=== PATIENT | male | born 1950 | race Caucasian/White ===

== ENCOUNTER 2021-03-24 01:11 | Inpatient (IN) ==
[2021-03-24] MEDS ORDERED: DOXYCYCLINE 100 MG in DEXTROSE 5% IN WATER 100 ML IV ONE (01:41)
[2021-03-24] MEDS ORDERED: VANCOMYCIN 1,500 MG in 0.9 % SODIUM CHLORIDE 500 ML IV ONE (01:41)
[2021-03-24] MEDS ORDERED: cefTRIAXone 1 GM VIAL IV ONE (01:48)
--- NOTE | 2021-03-24 01:56 | Emergency Department Note ---
HPI General Chief complaint: Skin/Abscess/Rash Stated complaint: facial redness/swelling Time Seen by Provider: 03/24/21 01:18 Source: patient Mode of arrival: EMS Limitations: no limitations History of Present Illness HPI Narrative: Narrative: 70 yo M w/ h/o DM2 p/w R face and eye edema and pain. He reports a few weeks of Sx, which have been constant and progressive since onset w/ no inciting/aggravating/alleviating factors. He denies any recent injury or other skin breaks. He notes that the pain is 8-9/10, sharp, over the R face w/o radiation. He has had some blurry vision but this has been present since December at least and has not progressed. He was seen yesterday by the same EMS crew and they report that his facial edema is worse today than then. Pt is not an ideal historian and struggles to provide many details. Related Data Home Medications Medication Instructions Recorded Confirmed aspirin 81 mg PO QDAY 03/24/21 03/24/21 lisinopril 5 mg PO QDAY 03/24/21 03/24/21 metformin 500 mg PO BID 03/24/21 03/24/21 Allergies Allergy/AdvReac Type Severity Reaction Status Date / Time Penicillins Allergy Unknown Unknown Verified 03/24/21 10:32 iodine AdvReac Mild Sedation Verified 03/24/21 10:32 Review of Systems ROS ROS Narrative: Narrative: All systems ED: reviewed and negative except as stated. [facility] Narrative Patient History Narrative: Narrative: Medical/Surgical/Family History All Active Problems (Updated 03/24/21 @ 05:59 by Severo Anna MD) Right facial swelling (Acute) Impetigo (Acute) Acute facial pain (Acute) DM2 (diabetes mellitus, type 2) (Acute) Social History Smoking Status: Never smoker Exam Narrative Narrative: Narrative: General Limitations: no limitations General appearance: Present alert and in no apparent distress Head Head: Present normocephalic and other (R half of the face w/ tender, warm, erythema that is blanching w/ numerous excoriations and honey colored crust. See illustration for borders.) Expanded Head Head image: 1. area of erythema 2. area of erythema Eye Eye: Present periorbital swelling (R eye, unable to open on initial exam. Thin purulent drainage leaking from medial edge. Eyelids with thick yellow crust.) ENT ENT: Present normal oropharynx and mucous membranes moist Chest Chest: Present normal inspection and symmetric chest wall rise Respiratory Respiratory: Present normal lung sounds bilaterally; Absent respiratory distress, rales/crackles, wheezes and stridor Cardiovascular Cardiovascular: Present regular rate, normal rhythm, +S1, +S2 and other (2+ B/L radial and DP pulses); Absent systolic murmur and diastolic murmur Adbominal Abdominal: Present soft and normal bowel sounds; Absent distention and tenderness Extremities Extremities: Absent pedal edema Neurological Neurological: Present alert and oriented X3 Psychiatric Psychiatric: Present normal affect Skin Skin: Present warm (WNL) and dry Course Vital Signs Vital signs: Vital Signs Temperature 99.9 F H 03/24/21 01:14 Pulse Rate 96 H 03/24/21 01:14 Respiratory Rate 16 03/24/21 01:14 Blood Pressure 147/89 03/24/21 01:14 Pulse Oximetry (%) 91 03/24/21 01:14 Temperature 99.5 F H 03/25/21 00:00 Pulse Rate 78 03/25/21 00:00 Respiratory Rate 20 03/25/21 00:00 Blood Pressure 152/80 03/25/21 00:00 Pulse Oximetry (%) 93 03/25/21 00:00 [facility] MDM Narrative Medical decision making narrative: Narrative: 70 yo M w/ h/o DM2 p/w facial and R eye pain and swelling. DDx - sepsis, cellulitis, periorbital cellulitis, conjunctivitis, impetigo Pt presented clinically stable, in NAD, but w/ significant facial edema. There was no muffled voice, stridor, SOB, or other evidence of airway involvement. While he met SIRS criteria, clinically he was not septic. I considered periorbital cellulitis but clinically this was less likely given the large area of erythema. The eye seemed to be only incidentally involved. To be safe, I did check a CT, which showed nothing other than nonspecific soft tissue inflammation. The CT however was limited by lack of contrast 2/2 an allergy. I considered a primary ophthalmological issue, however this would not result in erythema spreading over such a large area (bottom of cheek up to crown of head and a little on to the occiput). I ordered vanc and rocephin for broad spectrum coverage, and began W/U w/ labs and CT (as noted above). Labs showed a normal WBC, and a lactate of 2.4. Overall however, I did not feel that sepsis was likely and sepsis fluids were not indicated. Given the amount of edema, in fact, I felt that they would likely be more harm than good. After CT, the edema (but not erythema) began spreading to involve the L forehead and periorbital area. Again, there was no evidence of airway involvement on my re-evaluation. Once the abx infused, his progression ceased. With the rash distribution and edema crossing midline, I felt that zoster was less likely. My suspicion was for impetigo. However given the extent of edema and progression here in the ED, I felt that admission was required to ensure that the abx were effective. I d/w the hospitalist, who requested that I speak w/ ENT before he would admit. At 0542 I spoke w/ JAROCHO Niño in [place]. He also felt that this was likely to be impetigo, albeit an atypical case. He agreed w/ the abx regimen that had been given, and recommended that we give a dose of solumedrol and then cover the pt w/ SSI. He felt that admission here would be perfectly reasonable, but also stated that if there was any decompensation that he would be happy to accept pt for T/F. I then updated the hospitalist, who accepted pt for admission. Lab Data Lab results reviewed: Yes I reviewed the patient's lab results. Result diagrams: 03/24/21 01:41 03/24/21 01:41 Labs: Lab Results 03/24/21 03/24/21 03/24/21 Range/Units 01:41 01:41 02:06 WBC 5.3 (4.5-11.0) K/mcL RBC 5.54 (4.63-6.08) M/mcL Hgb 15.1 (13.7-17.5) g/dL Hct 47.0 (40.1-51.0) % MCV 84.8 (80.0-100.0) fL MCH 27.3 (26.0-34.0) pg MCHC 32.1 (31.0-36.0) g/dL RDW 13.8 (11.5-14.5) % Plt Count 118 L (140-440) K/mcL MPV 10.5 H (7.4-10.4) fL Neut % (Auto) 61.8 (38.0-78.0) % Lymph % (Auto) 18.0 (15.5-49.0) % [place] % (Auto) 19.4 H (1.0-12.0) % Eos % (Auto) 0.6 (0.0-7.0) % Baso % (Auto) 0.2 (0.0-2.0) % Lymph # (Auto) 0.95 L (1.50-4.80) K/mcL [place] # (Auto) 1.02 H (0.10-0.90) K/mcL Eos # (Auto) 0.03 (0.00-0.70) K/mcL Baso # (Auto) 0.01 (0.00-0.30) K/mcL Absolute Neutrophils 3.26 (1.80-8.00) K/mcL VBG Lactic Acid 2.4 H (0.5-2.0) mmol/L Sodium 136 (133-145) mmol/L Potassium 3.9 (3.3-5.1) mmol/L Chloride 99 (96-108) mmol/L Carbon Dioxide 22 (22-30) mmol/L Anion Gap 15.0 (8.0-16.0) BUN 22 (8-23) mg/dL Creatinine 1.1 (0.7-1.2) mg/dL GFR Calculation 66 Glucose 141 H (70-105) mg/dL Calcium 9.2 (8.6-10.4) mg/dL Total Bilirubin 1.1 H (0.1-1.0) mg/dL AST 27 (<40) U/L ALT 25 (<40) U/L Alkaline Phosphatase 68 (39-117) U/L Total Protein 7.5 (5.9-8.4) gm/dL Albumin 3.9 (3.2-5.2) gm/dL Globulin 3.6 (2.2-3.7) gm/dL Albumin/Globulin Ratio 1.1 (1.0-2.3) ED POC Tests ED POC Tests: AAYUSH - SARS Antigen Negative CC TIME Critical Care Time Total Critical Care Time: 45 Attestation: The very real possibility of disability or existed without emergent intervention. Organ systems at risk of deterioration included CVS, pulmonary. Interventions included antibiotics, interpretation of labs and imaging, ENT consultation, and multiple re-evaluations. No procedures were required. Discharge Plan Patient/Caregiver Discharge Instructions Pt seen by BEAUTY CULTURE TEACHER/PA only: No Clinical Impression: Right facial swelling, Impetigo, Acute facial pain, DM2 (diabetes mellitus, type 2) Patient Disposition: Xfer As Inpt ([facility]) Condition: Fair Discharge Date/Time: 03/24/21 07:45
[2021-03-24] MEDS ORDERED: 0.9 % SODIUM CHLORIDE 500 ML ONE (01:57)
[2021-03-24 03:27] LABS: Basophils # (Auto) 0.01 K/mcL (0.00-0.30); Basophils % (Auto) 0.2 % (0.0-2.0); Eosinophils # (Auto) 0.03 K/mcL (0.00-0.70); Eosinophils % (Auto) 0.6 % (0.0-7.0); Hemoglobin 15.1 g/dL (13.7-17.5); Lymphocytes # (Auto) 0.95 K/mcL (1.50-4.80); Mean Cell Volume 84.8 fL (80.0-100.0); Mean Corpuscular HGB Conc 32.1 g/dL (31.0-36.0); Mean Platelet Volume 10.5 fL (7.4-10.4); Monocytes # (Auto) 1.02 K/mcL (0.10-0.90); Monocytes % (Auto) 19.4 % (1.0-12.0); Neutrophils % (Auto) 61.8 % (38.0-78.0); Platelet Count 118 K/mcL (140-440); RBC 5.54 M/mcL (4.63-6.08); Red Cell Distribution Width 13.8 % (11.5-14.5)
[2021-03-24 03:28] LABS: ALT/SGPT 25 U/L (<40); AST/SGOT 27 U/L (<40); Albumin 3.9 gm/dL (3.2-5.2); Albumin/Globulin Ratio 1.1 (1.0-2.3); Alkaline Phosphatase 68 U/L (39-117); Bilirubin,Total 1.1 mg/dL (0.1-1.0); Blood Urea Nitrogen 22 mg/dL (8-23); Calcium 9.2 mg/dL (8.6-10.4); Carbon Dioxide 22 mmol/L (22-30); Chloride 99 mmol/L (96-108); Globulin 3.6 gm/dL (2.2-3.7); Glomerular Filtration Rate 66; Glucose 141 mg/dL (70-105)
[2021-03-24] MEDS ORDERED: ACETAMINOPHEN 1,000 MG/100 ML BAG IV ONE (04:34)
[2021-03-24] MEDS ORDERED: PROPARACAINE 0.5% OPHTH DROPS 15 ML OU ONE (04:35)
[2021-03-24] MEDS ORDERED: methylPREDNISolone SOD SUCC 125 MG/2 ML VIAL IV ONE (05:41)
[2021-03-24] MEDS: cefTRIAXone 2 GM in DEXTROSE 5% IN WATER 50 ML IV SCH (05:45)
[2021-03-24] MEDS: VANCOMYCIN 1,500 MG in 0.9 % SODIUM CHLORIDE 500 ML IV SCH ×3 (06:45→20:22)
[2021-03-24 07:52] LABS: WBC 5.3 K/mcL (4.5-11.0)
--- NOTE | 2021-03-24 09:04 | Cat Scan Report ---
History: Right side facial and periorbital edema/erythema TECHNIQUE: The face was imaged in axial plane without contrast at 1.25 mm intervals from the upper brain to the mid neck. Sagittal and coronal reformats were created. The radiation exposure was limited using dose reduction technology. FINDINGS: There is moderately severe soft tissue swelling in the right side of the face the greatest swelling is anterior to the orbit. This extends over the cheek and up to the forehead. There is moderate swelling over the left orbital globe and at the base of the nose. There is no evidence of an abscess. There is no gas in the soft tissues or foreign body. The orbital globes appear normal and symmetric. There is no inflammation of the periorbital fat. Extraocular muscles and optic nerves appear normal and symmetric. Bone windows show no fracture or bone erosion. Maxillary and ethmoid sinuses are clear. Minor mucosal thickening is present in the inferior recess of the right frontal sinus. The sphenoids and mastoids are clear. Mild cerebral atrophy is present. There is no cerebral edema or mass effect. Degenerative disc disease and arthritis are present in the cervical spine at multiple levels. No abnormally enlarged lymph nodes are present in the face or upper neck. Salivary glands appear normal. Oral cavity is normal. IMPRESSION: Severe edema/cellulitis in the face, predominantly on the right side around the orbit. Interpreted and Authenticated by: Tejas Plascencia 03/24/21
[2021-03-24] MEDS ORDERED: 0.9 % SODIUM CHLORIDE 500 ML IV ONE (09:21)
--- NOTE | 2021-03-24 09:35 | Internal Med History&Physical ---
HPI History of Present Illness Patient information: Note initiated : 03/24/21 at 9:29 am Service Date, if different from initiated Date: [] Patient: Silverio Cadet a 70 y/o M admitted on 03/24/21 for facial redness/swelling. Chief Complaint: [] History of present illness: Mr. Cadet is a 70 year old M Presents to ED with right-sided facial swelling including around the eye, including pain. Seem to start about a week ago. He does have chronic blurriness but states for past 3 to 4 days little bit more blurry but attributes that to the swelling around the eyes. denies recent injury. In the ED laboratories unremarkable except for mildly elevated lactate at 2.4 and he had a facial CT which showed severe edema cellulitis in the face and periorbital but did not appear to have any involvement of the orbit. Evaluation in the ER as well patient did not have any pain with ocular movement. There was also consideration for herpes zoster but it did not feel to be that and more concerned with impetigo and the case was discussed with ENT Dr. Olman fields in [place] who felt it was more of an atypical case of impetigo who recommended Solu-Medrol in addition to the antibiotics and felt he could be managed here but if needed he could be transferred up under his care. When I evaluated him I was impressed by the demarcation of erythema on the forehead and thus was concerned with herpes zoster. Now he does not report vesicular lesions but he does mention some pus with some of the lesions and although the redness is primarily right it seems to have gotten a little bit over the bridge of the nose to the left eye. And the crusted lesions look like impetigo lesions so it very well may be impetigo but with how impressive the erythema demarcates on the forehead and his history of shingles I would still be quite concerned for herpes zoster and ophthalmicus. Thus I did discuss the case with water project manager Dr. Zepeda who did recommend treating with Valtrex and providing lubricating eyedrops only at this time (to avoid specifically Viroptic). And for the patient to follow-up next week in his office. He also stated to call back if patient symptoms worsened Pain in the face he described as sharp and lasting for 10 seconds and then will go away completely Patient denies fever chills, patient denies shortness of breath swallowing difficulty or cough. Patient has had shingles in the past on the arm. CT face did not show any involvement of the orbit and surrounding fat. Patient moved from [facility] several months ago. Review of Systems: Pertinent positives as above plus occasional headaches. denies headache/fever/chills/nausea/vomiting/chest or abdominal pain/cough/dyspnea/diarrhea. Remaining 10 point review of system reviewed negative PFSH PFSH All Active Problems (Updated 03/24/21 @ 05:59 by Severo Anna MD) Right facial swelling (Acute) Impetigo (Acute) Acute facial pain (Acute) DM2 (diabetes mellitus, type 2) (Acute) MEDS/ALLERGIES Home Medications and Allergies Home Medications Medication Instructions Recorded Confirmed Type aspirin 81 mg PO QDAY 03/24/21 03/24/21 History lisinopril 5 mg PO QDAY 03/24/21 03/24/21 History metformin 500 mg PO BID 03/24/21 03/24/21 History Allergies Allergy/AdvReac Type Severity Reaction Status Date / Time Penicillins Allergy Unknown Unknown Verified 03/24/21 10:32 iodine AdvReac Mild Sedation Verified 03/24/21 10:32 EXAM Constitutional Vitals: Temp Pulse Resp BP Pulse Ox 96.7 F L 82 16 161/87 94 03/24/21 08:00 03/24/21 08:00 03/24/21 08:00 03/24/21 08:00 03/24/21 08:00 Exam: General: Alert, Awake, No acute Distress Eyes/N/T/Head: EOMI without pain on movement, Right side erythema/edema/TTP over crusted lesions on forhead, some erythema over to the left eye with periorbital edema Neck: neck supple, CV: RRR, No murmurs, normal s1/s2 Pulm: Clear b/l, no wheezing/rhonchi/rales Abd: soft, nontender, +BS x4 Ext: no clubbing/cyanosis/edema Neuro: Alert, no focal deficits, moves all extremities, CN 2-12 grossly intact, symmetrical strength b/l upper/lower, sensations intact b/l upper/lower Skin: warm/dry DATA Data Completed and Pending Labs: Labs from last 24 hours 03/24/21 03/24/21 03/24/21 02:06 01:41 01:41 WBC 5.3 RBC 5.54 Hgb 15.1 Hct 47.0 MCV 84.8 MCH 27.3 MCHC 32.1 RDW 13.8 Plt Count 118 L MPV 10.5 H Neut % (Auto) 61.8 Lymph % (Auto) 18.0 [place] % (Auto) 19.4 H Eos % (Auto) 0.6 Baso % (Auto) 0.2 Lymph # (Auto) 0.95 L [place] # (Auto) 1.02 H Eos # (Auto) 0.03 Baso # (Auto) 0.01 Absolute Neutrophils 3.26 VBG Lactic Acid 2.4 H Sodium 136 Potassium 3.9 Chloride 99 Carbon Dioxide 22 Anion Gap 15.0 BUN 22 Creatinine 1.1 GFR Calculation 66 Glucose 141 H Calcium 9.2 Total Bilirubin 1.1 H AST 27 ALT 25 Alkaline Phosphatase 68 Total Protein 7.5 Albumin 3.9 Globulin 3.6 Albumin/Globulin Ratio 1.1 A/P Narrative A/P Narrative: A: *Right facial cellulitis w/periorbital edema vs Herpes Zoster: -mild increase in blurriness above chronic likely attributed to edema/irritation, no diplopia. no pain with EOMI. -case discussed with ENT from ED, felt atypical impetigo and treat with abx. -case d/w Mortgage Loan Funder (Katelyn), felt concern for & Tx of herpes to be prudent > valtrex and lubricating drops *HTN: ACEI *DM: * P: -IV Rocephin, Vanco(switch to Doxy in morning likely) -f/u BC/WC -Valtrex, lubricating eye drops -Continue lisinopril -Continue Metformin, SSI -pt/ot -CM for placement needs -f/u with Dr. Zepeda next week (Opthalmologist) -ppx: lovenox DNR Time Spent With Patient Time: Total time spent is greater than 50% in coordination of care (as documented) at patient's floor/unit and/or counseling patient:
[2021-03-24] MEDS ORDERED: ONDANSETRON 4 MG/2 ML VIAL IV PRN (10:57)
[2021-03-24] MEDS ORDERED: DEXTROSE 50% 50 ML VIAL IV PRN (10:57)
[2021-03-24] MEDS ORDERED: SENNOSIDES 1 TABLET PO PRN (10:57)
[2021-03-24] MEDS ORDERED: DEXTROSE 31 GM ORAL.SUSP PO PRN (10:57)
[2021-03-24] MEDS ORDERED: POTASSIUM CHLORIDE 40 MEQ in DEXTROSE 5% IN WATER 500 ML IV PRN (10:57)
[2021-03-24] MEDS ORDERED: POLYETHYLENE GLYCOL 3350 17 GM PACKET PO PRN (10:57)
[2021-03-24] MEDS ORDERED: POTASSIUM CHLORIDE 20 MEQ TABLET PO PRN ×2 (10:57)
[2021-03-24] MEDS ORDERED: MAGNESIUM SULFATE 2 GM/50 ML BAG IV PRN (10:57)
[2021-03-24] MEDS ORDERED: VANCOMYCIN PER PHARMACY IV SCH (11:15)
[2021-03-24] MEDS: LISINOPRIL 5 MG TABLET PO SCH (12:25)
[2021-03-24] MEDS: ACETAMINOPHEN 325 MG TABLET PO PRN ×2 (12:25→19:05)
[2021-03-24] MEDS: metFORMIN 500 MG TABLET PO SCH ×2 (12:25→16:55)
[2021-03-24] MEDS: INSULIN LISPRO 1 UNIT/0.01 ML UNIT SQ SCH ×3 (12:28→20:21)
[2021-03-24] MEDS: HYDROcodone/APAP 5/325MG TABLET PO PRN (14:38)
[2021-03-24] MEDS: 0.9 % SODIUM CHLORIDE 10 ML SYRINGE IV SCH ×2 (15:52→20:24)
[2021-03-24] MEDS: valACYclovir 500 MG TABLET PO SCH ×2 (16:55→20:22)
[2021-03-25] MEDS: HYDROcodone/APAP 5/325MG TABLET PO PRN ×2 (03:48→20:44)
[2021-03-25] MEDS: 0.9 % SODIUM CHLORIDE 10 ML SYRINGE IV SCH ×3 (06:04→20:48)
[2021-03-25 07:20] LABS: Hematocrit 43.5 % (40.1-51.0); Hemoglobin 14.2 g/dL (13.7-17.5); Mean Corpuscular HGB Conc 32.6 g/dL (31.0-36.0); Mean Platelet Volume 10.4 fL (7.4-10.4); Platelet Count 121 K/mcL (140-440); RBC 5.18 M/mcL (4.63-6.08); Red Cell Distribution Width 13.4 % (11.5-14.5); WBC 6.1 K/mcL (4.5-11.0)
--- NOTE | 2021-03-25 07:32 | Internal Med Progress Note ---
SUBJECTIVE Subjective Patient information: Note initiated : 03/25/21 at 7:29 am Service Date, if different from initiated Date: [] Patient: Silverio Cadet a 70 y/o M admitted on 03/24/21 for facial re dness/swelling. Chief Complaint: [] Interval history: History of present illness: Mr. Cadet is a 70 year old M Presents to ED with right-sided facial swelling including around the eye, including pain. Seem to start about a week ago. He does have chronic blurriness but states for past 3 to 4 days little bit more blurry but attributes that to the swelling around the eyes. denies recent injury. In the ED laboratories unremarkable except for mildly elevated lactate at 2.4 and he had a facial CT which showed severe edema cellulitis in the face and periorbital but did not appear to have any involvement of the orbit. Evaluation in the ER as well patient did not have any pain with ocular movement. There was also consideration for herpes zoster but it did not feel to be that and more concerned with impetigo and the case was discussed with ENT Dr. Perez in [place] who felt it was more of an atypical case of impetigo who recommended Solu-Medrol in addition to the antibiotics and felt he could be managed here but if needed he could be transferred up under his care. When I evaluated him I was impressed by the demarcation of erythema on the forehead and thus was concerned with herpes zoster. Now he does not report vesicular lesions but he does mention some pus with some of the lesions and although the redness is primarily right it seems to have gotten a little bit over the bridge of the nose to the left eye. And the crusted lesions look like impetigo lesions so it very well may be impetigo but with how impressive the erythema demarcates on the forehead and his history of shingles I would still be quite concerned for herpes zoster and ophthalmicus. Thus I did discuss the case with roofing technician Dr. Zepeda who did recommend treating with Valtrex and providing lubricating eyedrops only at this time (to avoid specifically Viroptic). And for the patient to follow-up next week in his office. He also stated to call back if patient symptoms worsened Pain in the face he described as sharp and lasting for 10 seconds and then will go away completely Patient denies fever chills, patient denies shortness of breath swallowing difficulty or cough. Patient has had shingles in the past on the arm. CT face did not show any involvement of the orbit and surrounding fat. Patient moved from [facility] several months ago. 03/25 Feeling bit better today. Swelling starting to improve. Dates poor sleep last night from interruptions. Review of Systems: denies headache/fever/chills/nausea/vomiting/chest or abdominal pain/ cough/dyspnea/diarrhea. Otherwise see above. Constitutional Vitals: Vital Signs Temp Pulse Resp BP Pulse Ox 99.5 F H 86 14 126/70 96 03/25/21 06:50 03/25/21 06:50 03/25/21 06:50 03/25/21 06:50 03/25/21 06:50 Period Temp Pulse Resp BP Sys/Lugo Pulse Ox Last 24 Hr 96.7 F-99.5 F 75-103 14-20 110-161/70-91 93-98 Intake and Output 03/24/21 03/25/21 03/25/21 21:59 05:59 13:59 Intake Total 500 800 Output Total 150 Balance 500 650 Weight 97.267 kg Intake & Output: Intake & Output 03/24/21 03/25/21 03/25/21 21:59 05:59 13:59 Intake Total 500 800 Output Total 150 Balance 500 650 Weight 97.267 kg Intake: IV 500 500 Vancomycin 1,500 mg In Sodium 500 500 Chloride 0.9% 500 ml @ 333.3 mls/hr IV Q12H [facility] Rx#: [id number] Oral 300 Output: Void Amount 150 Other: Urine Appearance Clear Clear Urine Color Dark Yellow Dark Yellow Exam: General: Alert, Awake, No acute Distress Eyes/N/T/Head: EOMI without pain on movement, Right side erythema/edema/TTP over crusted lesions on forhead, some erythema over to the left eye with periorbital edema. Edema/erythema slowly improving Neck: neck supple, CV: RRR, No murmurs, Pulm: Clear b/l, no wheezing/rhonchi/rales Abd: soft, nontender, +BS x4 Ext: no clubbing/cyanosis/edema Neuro: Alert, no focal deficits, moves all extremities, Skin: warm/dry OBJ DATA Labs CBC & Chem 7: 03/25/21 05:34 03/25/21 05:34 Labs: Abnormal Lab Results 03/25/21 03/24/21 03/24/21 05:34 12:00 02:06 Plt Count 121 L MPV [place] % (Auto) Lymph # (Auto) [place] # (Auto) VBG Lactic Acid 2.4 H Glucose Total Bilirubin C-Reactive Protein 5.40 H 03/24/21 03/24/21 01:41 01:41 Plt Count 118 L MPV 10.5 H [place] % (Auto) 19.4 H Lymph # (Auto) 0.95 L [place] # (Auto) 1.02 H VBG Lactic Acid Glucose 141 H Total Bilirubin 1.1 H C-Reactive Protein Meds: Medications Acetaminophen (Acetaminophen 325 Mg Tablet) 650 mg PO Q6HP PRN PRN Reason: PAIN/FEVER > 101 Last Admin: 03/24/21 19:05 Dose: 650 mg Documented by: Hydrocodone Bitart/Acetaminophen (Hydrocodone/Apap 5/325mg Tablet) 1 tab PO Q4HP PRN PRN Reason: PAIN LEVEL 3-6 Last Admin: 03/25/21 03:48 Dose: 1 tab Documented by: Artificial Tears (Carboxymethylcellulose Sodium 1 Each Droper.Gel) 1 each OP Q2HP PRN PRN Reason: eye discomfort/dryness Aspirin (Aspirin 81 Mg Tab.Chew) 81 mg PO DAILY ALY Dextrose (Dextrose 50% 50 Ml Vial) 0 ml IV UD PRN PRN Reason: Hypoglycemia Diagnostic Test (Pha) (Accu-Chek 1 Each Strip) 1 each FS ACHS ALY Last Admin: 03/24/21 20:22 Dose: 1 each Documented by: Enoxaparin Sodium (Enoxaparin 40 Mg/0.4 Ml Syringe) 40 mg SQ DAILY ALY Glucose (Dextrose 31 Gm Oral.Susp) 15 gm PO PRN PRN PRN Reason: Hypoglycemia Vancomycin HCl 1,500 mg/ (Sodium Chloride) 500 mls @ 333.3 mls/hr IV Q12H ALY; Protocol Last Infusion: 03/25/21 01:47 Dose: Infused Documented by: Ceftriaxone Sodium 2 gm/ (Dextrose) 50 mls @ 100 mls/hr IV Q24H ALY; Protocol Last Admin: 03/24/21 05:45 Dose: Not Given Documented by: Potassium Chloride 40 meq/ (Dextrose) 520 mls @ 130 mls/hr IV UD PRN PRN Reason: Potassium < 3 Magnesium Sulfate (Magnesium Sulfate) 2 gm in 50 mls @ 50 mls/hr IV UD PRN PRN Reason: Magnesium </= 1.6 Insulin Human Lispro (Insulin Lispro 1 Unit/0.01 Ml Unit) 0 unit SQ ACHS [facility]; Protocol Last Admin: 03/24/21 20:21 Dose: 2 unit Documented by: Lisinopril (Lisinopril 5 Mg Tablet) 5 mg PO QDAY [facility] Last Admin: 03/24/21 12:25 Dose: 5 mg Documented by: Metformin HCl (Metformin 500 Mg Tablet) 500 mg PO BIDCC [facility] Last Admin: 03/24/21 16:55 Dose: 500 mg Documented by: Ondansetron HCl (Ondansetron 4 Mg/2 Ml Vial) 4 mg IV Q4HP PRN PRN Reason: Nausea And Vomiting Polyethylene Glycol (Polyethylene Glycol 3350 17 Gm Packet) 17 gm PO DAILYP PRN PRN Reason: Constipation Potassium Chloride (Potassium Chloride 20 Meq Tablet) 40 meq PO UD PRN PRN Reason: Potssium is 3-3.5 Potassium Chloride (Potassium Chloride 20 Meq Tablet) 40 meq PO UD PRN PRN Reason: Potassium < 3 Senna (Sennosides 1 Tablet) 2 tab PO DAILYP PRN PRN Reason: Constipation Sodium Chloride (0.9 % Sodium Chloride 10 Ml Syringe) 10 ml IV Q8 [facility] Last Admin: 03/25/21 06:04 Dose: 10 ml Documented by: Valacyclovir HCl (Valacyclovir 500 Mg Tablet) 1,000 mg PO TID [facility]; Protocol Last Admin: 03/24/21 20:22 Dose: 1,000 mg Documented by: Vancomycin HCl (Vancomycin Per Pharmacy) 1 order IV UD [facility] A/P Narrative A/P Narrative: A: *Right facial cellulitis w/periorbital edema vs Herpes Zoster w/secondary bacterial infection: Slowly improving -mild increase in blurriness above chronic likely attributed to edema/irritation, no diplopia. no pain with EOMI. -case discussed with ENT from ED, felt atypical impetigo and treat with abx. -case d/w Financial Services Sales Representative (Katelyn), felt concern for & Tx of herpes to be prudent > valtrex and lubricating drops *HTN: ACEI *DM: *Thrombocytopenia, unknown chronicity: stable P: -IV Rocephin, Vanco(switch to likely Doxy today) -f/u BC/WC -Valtrex, lubricating eye drops -Continue lisinopril -Continue Metformin, SSI -pt/ot -CM for placement needs -f/u with Dr. Zepeda next week (Financial Services Sales Representative) -ppx: lovenox DNR Time Spent With Patient Time: Total time spent is greater than 50% in coordination of care (as documented) at patient's floor/unit and/or counseling patient:
[2021-03-25 07:57] LABS: ALT/SGPT 19 U/L (<40); AST/SGOT 18 U/L (<40); Albumin 3.2 gm/dL (3.2-5.2); Albumin/Globulin Ratio 0.9 (1.0-2.3); Alkaline Phosphatase 59 U/L (39-117); Bilirubin,Direct 0.3 mg/dL (<0.3); Bilirubin,Total 0.6 mg/dL (0.1-1.0); Blood Urea Nitrogen 24 mg/dL (8-23); Calcium 8.6 mg/dL (8.6-10.4); Carbon Dioxide 21 mmol/L (22-30); Chloride 99 mmol/L (96-108); Globulin 3.7 gm/dL (2.2-3.7); Glomerular Filtration Rate 74; Glucose 145 mg/dL (70-105); Lactate Dehydrogenase 291 U/L (135-225); Phosphorous 2.9 mg/dL (2.5-4.5); Triglycerides 97 mg/dL (<150); Uric Acid 4.8 mg/dL (2.5-8.0)
[2021-03-25] MEDS: ASPIRIN 81 MG TAB.CHEW PO SCH (08:30)
[2021-03-25] MEDS: LISINOPRIL 5 MG TABLET PO SCH (08:30)
[2021-03-25] MEDS: metFORMIN 500 MG TABLET PO SCH ×2 (08:31→17:44)
[2021-03-25] MEDS: ENOXAPARIN 40 MG/0.4 ML SYRINGE SQ SCH (08:31)
[2021-03-25] MEDS: cefTRIAXone 2 GM in DEXTROSE 5% IN WATER 50 ML IV SCH (08:39)
[2021-03-25] MEDS: INSULIN LISPRO 1 UNIT/0.01 ML UNIT SQ SCH ×4 (08:39→20:37)
[2021-03-25] MEDS: valACYclovir 500 MG TABLET PO SCH ×3 (08:40→20:43)
[2021-03-25] MEDS ORDERED: VANCOMYCIN 1,250 MG in 0.9 % SODIUM CHLORIDE 500 ML IV SCH (09:00)
[2021-03-25 10:02] LABS: Band Neutrophils % 10 % (0-10); Lymphocytes % 23 % (15-49); Monocytes % (Manual) 9 % (1-12); Platelet Estimate DECREASED (Normal); RBC Morphology NORMAL (Normal); Reactive Lymphocytes 1 % (0-2); Segmented Neutrophils % 57 % (38-78)
--- NOTE | 2021-03-25 11:07 | Discharge Summary ---
Discharge Provider Provider Patient information: Note initiated : 03/25/21 at 11:05 am Service Date, if different from initiated Date: [] Patient: Silverio Cadet 70 y/o M admitted on 03/24/21 for facial redness/swelling. Chief Complaint: [] Date of admission: 03/24/21 07:35 Discharge date: 03/26/21 Primary care physician: PCP No Consults: 03/24/21 Consult to Physician [CONS] Stat Comment: Consulting Provider: Maikel Kaufman Reason For Exam: Physician to Consult Discharge Meds Discharge Medications Home Medications aspirin 81 mg PO QDAY 03/24/21 [History Confirmed 03/24/21 Last Taken 03/22/21] lisinopril 5 mg PO QDAY 03/24/21 [History Confirmed 03/24/21 Last Taken 03/22/21 5 mg] metformin 500 mg PO BID 03/24/21 [History Confirmed 03/24/21 Last Taken 03/22/21] cephalexin 500 mg PO QID #14 cap 03/25/21 [Rx Last Taken Unknown] valacyclovir 1,000 mg PO TID #16 tab 03/25/21 [Rx Last Taken Unknown] hydrocodone-acetaminophen 1 tab PO Q8H PRN #10 tab 03/26/21 [Rx Last Taken Unknown] COURSE Hospital Course Hospital course: Interval history: History of present illness: Mr. Cadet is a 70 year old M Presents to ED with right-sided facial swelling including around the eye, including pain. Seem to start about a week ago. He does have chronic blurriness but states for past 3 to 4 days little bit more blurry but attributes that to the swelling around the eyes. denies recent injury. In the ED laboratories unremarkable except for mildly elevated lactate at 2.4 and he had a facial CT which showed severe edema cellulitis in the face and periorbital but did not appear to have any involvement of the orbit. Evaluation in the ER as well patient did not have any pain with ocular movement. There was also consideration for herpes zoster but it did not feel to be that and more concerned with impetigo and the case was discussed with ENT Dr. Perez in [place] who felt it was more of an atypical case of impetigo who recommended Solu-Medrol in addition to the antibiotics and felt he could be managed here but if needed he could be transferred up under his care. When I evaluated him I was impressed by the demarcation of erythema on the forehead and thus was concerned with herpes zoster. Now he does not report vesicular lesions but he does mention some pus with some of the lesions and although the redness is primarily right it seems to have gotten a little bit over the bridge of the nose to the left eye. And the crusted lesions look like impetigo lesions so it very well may be impetigo but with how impressive the erythema demarcates on the forehead and his history of shingles I would still be quite concerned for herpes zoster and ophthalmicus. Thus I did discuss the case with junior sales assistant Dr. Zepeda who did recommend treating with Valtrex and providing lubricating eyedrops only at this time (to avoid specifically Viroptic). And for the patient to follow-up next week in his office. He also stated to call back if patient symptoms worsened Pain in the face he described as sharp and lasting for 10 seconds and then will go away completely Patient denies fever chills, patient denies shortness of breath swallowing difficulty or cough. Patient has had shingles in the past on the arm. CT face did not show any involvement of the orbit and surrounding fat. Patient moved from [facility] several months ago. 9/3 Feeling bit better today. Swelling starting to improve. Dates poor sleep last night from interruptions. 9/4 Swelling improving and continues to get better. Stable for discharge. A/P Narrative: A: *Right facial cellulitis w/periorbital edema vs Herpes Zoster w/secondary bacterial infection: Slowly improving -mild increase in blurriness above chronic likely attributed to edema/irritation, no diplopia. no pain with EOMI. -case discussed with ENT from ED, felt atypical impetigo and treat with abx. -case d/w Tag Clerk (Katelyn), felt concern for & Tx of herpes to be prudent > valtrex and lubricating drops *HTN: ACEI *DM: *Thrombocytopenia, unknown chronicity: stable Discharge diagnosis: Right facial cellulitis periorbital edema versus herpes zoster with seconda Secondary discharge diagnosis: HTN diabetes thrombocytopenia Time Spent with Patient Time attestation: Total time spent providing and/or coordinating discharge services: Time spent: Greater than 30 minutes EXAM Constitutional Vitals: Temp Pulse Resp BP Pulse Ox 99.5 F H 86 14 126/70 96 03/25/21 06:50 03/25/21 06:50 03/25/21 06:50 03/25/21 06:50 03/25/21 06:50 Discharge Data Data Completed and Pending Labs on day of discharge: Labs from last 24 hours 03/25/21 03/25/21 03/25/21 08:12 05:34 05:34 WBC 6.1 RBC 5.18 Hgb 14.2 Hct 43.5 MCV 84.0 MCH 27.4 MCHC 32.6 RDW 13.4 Plt Count 121 L MPV 10.4 Seg Neutrophils % 57 Band Neutrophils % 10 Lymphocytes % 23 Monocytes % (Manual) 9 Reactive Lymphocytes 1 Platelet Estimate Decreased A RBC Morphology Normal Sodium 134 Potassium 3.9 Chloride 99 Carbon Dioxide 21 L Anion Gap 14.0 BUN 24 H Creatinine 1.0 GFR Calculation 74 Glucose 145 H Uric Acid 4.8 Calcium 8.6 Phosphorus 2.9 Magnesium 1.9 Total Bilirubin 0.6 Direct Bilirubin 0.3 H GGT 64 H AST 18 ALT 19 Alkaline Phosphatase 59 Lactate Dehydrogenase 291 H C-Reactive Protein 4.40 H Total Protein 6.9 Albumin 3.2 Globulin 3.7 Albumin/Globulin Ratio 0.9 L Triglycerides 97 Vancomycin Trough 17.4 03/24/21 12:00 WBC RBC Hgb Hct MCV MCH MCHC RDW Plt Count MPV Seg Neutrophils % Band Neutrophils % Lymphocytes % Monocytes % (Manual) Reactive Lymphocytes Platelet Estimate RBC Morphology Sodium Potassium Chloride Carbon Dioxide Anion Gap BUN Creatinine GFR Calculation Glucose Uric Acid Calcium Phosphorus Magnesium Total Bilirubin Direct Bilirubin GGT AST ALT Alkaline Phosphatase Lactate Dehydrogenase C-Reactive Protein 5.40 H Total Protein Albumin Globulin Albumin/Globulin Ratio Triglycerides Vancomycin Trough Preliminary micro results at discharge 03/24/21 02:30 Blood Culture - Preliminary Blood 03/24/21 01:58 Blood Culture - Preliminary Blood 03/24/21 11:20 Gram Stain - Preliminary Face Wound Culture - Preliminary Discharge Plan Patient/Caregiver Discharge Instructions Activity: increase activity as tolerated Diet: Consistent Carbohydrate Activity Restrictions/Additional Instructions: Referral to this tablet with PCP and follow-up within 3 to 7 days. Prescriptions: New valacyclovir 500 mg Tablet 1,000 mg PO TID Qty: 16 RF: 0 cephalexin 500 mg capsule 500 mg PO QID Qty: 14 RF: 0 hydrocodone-acetaminophen 5-325 mg tablet 1 tab PO Q8H PRN (Reason: pain) Qty: 10 RF: 0 Continued metformin 500 mg Tablet 500 mg PO BID RF: 0 aspirin 81 mg Tablet 81 mg PO QDAY RF: 0 lisinopril 5 mg Tablet 5 mg PO QDAY RF: 0 Follow Up Plan Follow up with: Tejas Zepeda MD [Physician] - Patient Disposition: Home, Self-Care Prognosis: Fair Overall status at discharge: patient is progressing back to baseline Discharge Orders: Discharge Order (Routine); Ordered 03/26/21 Ordered By: Maikel Kaufman
[2021-03-25] MEDS: CARBOXYMETHYLCELLULOSE SODIUM 1 EACH DROPER.GEL OP PRN ×3 (11:29→20:44)
[2021-03-25] MEDS: VANCOMYCIN 1,500 MG in 0.9 % SODIUM CHLORIDE 500 ML IV SCH (12:46)
[2021-03-25] MEDS: DOXYCYCLINE HYCLATE 100 MG TABLET.ORL PO SCH (20:44)
[2021-03-26] MEDS: CARBOXYMETHYLCELLULOSE SODIUM 1 EACH DROPER.GEL OP PRN ×2 (00:50→06:04)
[2021-03-26] MEDS: HYDROcodone/APAP 5/325MG TABLET PO PRN (00:50)
[2021-03-26] MEDS: INSULIN LISPRO 1 UNIT/0.01 ML UNIT SQ SCH (08:11)
[2021-03-26] MEDS: 0.9 % SODIUM CHLORIDE 10 ML SYRINGE IV SCH (08:11)
[2021-03-26] MEDS: valACYclovir 500 MG TABLET PO SCH (08:12)
[2021-03-26] MEDS: ENOXAPARIN 40 MG/0.4 ML SYRINGE SQ SCH ×2 (08:12→08:16)
[2021-03-26] MEDS: LISINOPRIL 5 MG TABLET PO SCH (08:12)
[2021-03-26] MEDS: ASPIRIN 81 MG TAB.CHEW PO SCH (08:12)
[2021-03-26] MEDS: metFORMIN 500 MG TABLET PO SCH (08:12)
[2021-03-26] MEDS: cefTRIAXone 2 GM in DEXTROSE 5% IN WATER 50 ML IV SCH (08:12)
[2021-03-26] MEDS: DOXYCYCLINE HYCLATE 100 MG TABLET.ORL PO SCH (09:06)
== END 2021-03-26 10:50 | disposition home or self-care (01) | DRG 603 ==
LOC: ED 01:11 → MEDSUR 07:35
PROVIDERS: ADMIT Internal Medicine; ATTEND Internal Medicine